=== PATIENT | female | born 1945 | race Caucasian/White ===

== ENCOUNTER 2017-12-03 10:55 | Emergency (ER) | payer MEDICARE ==
[~2017-12-03] VITALS: Ht 157.5 cm; Wt 56.0 kg
[2017-12-03 10:58] VITALS: BP 140/73; PULSE 84; RESP 16; TEMP 98.3; O2SAT 97
[2017-12-03] MEDS ORDERED: ONDANSETRON HCL 4 MG/2 ML VIAL IV PUSH ONE (11:15)
[2017-12-03] MEDS ORDERED: SODIUM CHLOR 0.9% 1000 ML INJ 1,000 ML IV SCH (11:15)
[2017-12-03] MEDS ORDERED: MORPHINE SULFATE 4 MG/ML INJ IV PUSH ONE (11:15)
--- NOTE | 2017-12-03 11:18 | PD ---
HPI Chief Complaint: Musculoskeletal Complaint Time Seen by Provider: 11:04 Travel History International Travel<30 days: No Contact w/Intl Traveler<30days: No Traveled to known affect area: No History of Present Illness HPI The patient is a 72-year-old female who presents to the emergency department for left shoulder pain and probable dislocation. The patient has a history of bilateral shoulder surgeries with shoulder replacement. The patient' s surgeon was Dr. Abhilash Mcmahon in [place], [place], telephone #[phone]. The patient states she was in bed earlier today when she stressed her shoulder and felt the shoulder dislocate. Patient has moderate pain at the left shoulder that is nonradiating, worse with movement, slightly alleviated at rest. She is right-hand dominant. She denies any numbness or tingling of the left upper extremity. Symptoms are moderate. The patient is currently visiting from [place], has no local physician or orthopedist. PFSH Past Medical History Narrative Medical Arthritis, neuropathy, hypertension, tremors Past Surgical History Narrative Surgical Bilateral shoulder surgery, back surgery Social History Tobacco Use: No Allergies-Medications (Allergen,Severity, Reaction): Coded Allergies: No Known Allergies (Verified Allergy, Unknown, 12/03/17) Reported Meds & Prescriptions Reported Meds & Active Scripts Active Percocet (Oxycodone-Acetaminophen) 5-325 mg Tab 1 Tab PO Q6H PRN Review of Systems Except as stated in HPI: all other systems reviewed are Neg HENT: No: Neck Pain Cardiovascular: No: Chest Pain or Discomfort Respiratory: No: Shortness of Breath Gastrointestinal: No: Nausea, Vomiting Musculoskeletal: Positive: Limited ROM, Pain Neurologic: Positive: Other (Chronic neuropathy of the lower extremities), No: Paresthesia (Denies any acute paresthesia of the left upper extremity) Physical Exam Narrative GENERAL: Awake, alert, pleasant 72-year-old female appears her stated age and is in no acute respiratory distress. SKIN: Focused skin assessment warm/dry. HEAD: Atraumatic. Normocephalic. EYES: No injection or drainage. ENT: No nasal bleeding or discharge. Mucous membranes pink and moist. NECK: Trachea midline. No JVD. CARDIOVASCULAR: Regular rate and rhythm. No murmur appreciated. RESPIRATORY: No accessory muscle use. Clear to auscultation. Breath sounds equal bilaterally. MUSCULOSKELETAL: The left upper extremity reveals a deformity at the left shoulder, appears to be a anterior dislocation. Possible left radial pulse. Patient is able to flex and extend the left wrist and is able to flex and extend left elbow, however, is limited range of motion of the shoulder. NEUROLOGICAL: Awake and alert. No obvious cranial nerve deficits. Motor grossly within normal limits. Normal speech. Alert and oriented 4. Follows commands without difficulty. PSYCHIATRIC: Appropriate mood and affect; insight and judgment normal. Data Data Last Documented VS Vital Signs Date Time Temp Pulse Resp B/P (MAP) Pulse Ox O2 Delivery O2 Flow Rate FiO2 12/03/17 10:58 98.3 84 16 140/73 (95) 97 Orders Orders Shoulder, Limited(2vws) (12/03/17 ) Morphine Inj (Morphine Inj) (12/03/17 11:15) Ondansetron Inj (Zofran Inj) (12/03/17 11:15) NPO (12/03/17 11:13) Sodium Chlor 0.9% 1000 Ml Inj (Ns 1000 M (12/03/17 11:15) Hydromorphone Pf Inj (Dilaudid Pf Inj) (12/03/17 12:15) Propofol 200 Mg/20 Ml Inj (Diprivan 200 (12/03/17 12:45) Shoulder, Limited(2vws) (12/03/17 13:02) Sling And Swathe (12/03/17 ) Radiology Film Requests (12/03/17 ) Ed Discharge Order (12/03/17 13:45) Sling And Swathe (12/03/17 ) [facility] Medical Decision Making Medical Screen Exam Complete: Yes Emergency Medical Condition: Yes Medical Record Reviewed: Yes Interpretation(s) Last Impressions Shoulder X-Ray 12/03/17 0000 Signed Impressions: Service Date/Time: Sunday, December 03, 2017 11:24 - CONCLUSION: Bubble this location, correlation suggested. Herbie Monae MD FACR Postreduction x-ray reveals anatomic alignment with arthroplasty in place without fracture. Differential Diagnosis Differential diagnosis includes dislocation, subluxation, hardware failure, fracture, contusion, hematoma, sprain, strain. Narrative Course IV was established. The patient was administered morphine 4 mg and Zofran 4 mg intravenously and placed on maintenance IV fluids. X-ray of the left shoulder was obtained. X-ray reveals left shoulder dislocation. I had a discussion regarding conscious sedation, discussed the risk and benefits with the patient, she was agreeable to reduction. I did discuss the patient with the on-call orthopedic for her surgeon, Dr. Dempsey, who states that the shoulder can be reduced in a normal fashion. The patient was placed on end-tidal CO2, oxygen via nasal cannula, pulse oximetry monitoring, and continuous pulse oximetry monitoring. The patient was placed under conscious sedation with propofol, the left shoulder was reduced, the patient was placed in a sling. Postreduction x- ray revealed proper reduction. The patient was neurovascularly intact after the procedure. She then awakened, her symptoms had significantly improved. She was discharged home with a disc of her x-ray findings is advised to follow- up with orthopedist. Return if symptoms worsen or progress. Procedures Procedure Narrative After the risks and benefits were discussed the following procedure was performed: MODERATE SEDATION: The patient was placed on a digital producer and pulse oximetry. An ambu bag and suction was immediately available at bedside. The patient was monitored by the nurse. Oxygen saturation, heart rate and blood pressure were monitored. Procedural sedation was acheived using propofol 80 mg. The patient was observed until awake and alert. Procedural Sedation time in attendance was 35 minutes. The patient's left reverse total shoulder arthroplasty was reduced under conscious sedation with propofol. The patient's left shoulder was extended at the elbow, abducted at the shoulder, and externally rotated. There appear to be reduction of the left shoulder. The patient was placed in a sling. Post reduction x-ray was obtained. The patient tolerated the procedure without difficulty. There is no obvious was no obvious complications. Diagnosis Primary Impression: Dislocation of left shoulder joint Qualified Codes: S43.005A - Unspecified dislocation of left shoulder joint, initial encounter Patient Instructions: General Instructions Additional Instructions: Please provide the patient a copy/disc of her x-rays. Follow-up with your orthopedist. Sling as directed. Pain medications as directed. Med/Other Pt SpecificInfo: Prescription(s) given Scripts Oxycodone-Acetaminophen (Percocet) 5-325 mg Tab 1 TAB PO Q6H Y for PAIN, #12 TAB 0 Refills Prov: Abhilash Kumar MD 12/03/17 Disposition: 01 DISCHARGE HOME Condition: Stable Abhilash Kumar MD Dec 03, 2017 11:18
--- NOTE | 2017-12-03 11:39 | RADRPT ---
EXAM DATE/TIME: 12/03/2017 11:24 [facility] COMPARISON: No previous studies available for comparison. INDICATIONS : Left shoulder pain after rolling over in bed MEDICAL HISTORY : None. SURGICAL HISTORY : Left shoulder surgery x 7 ENCOUNTER: Initial ACUITY: 1 day PAIN SCORE: 7/10 LOCATION: Left shoulder FINDINGS: Shoulder arthroplasty that appears dislocated anteriorly. No fracture. Lung apex clear CONCLUSION: Bubble this location, correlation suggested. Herbie Monae MD FACR on December 03, 2017 at 11:36 Board Certified Radiologist. This report was verified electronically.
[2017-12-03] MEDS ORDERED: HYDROmorphone HCL PF 1 MG/ML VIAL IV PUSH ONE (12:15)
[2017-12-03] MEDS ORDERED: PROPOFOL 200 MG/20 ML AMP IV ONE (12:45)
--- NOTE | 2017-12-03 13:42 | RADRPT ---
EXAM DATE/TIME: 12/03/2017 13:04 [facility] COMPARISON: SHOULDER LEFT LTD (2VWS), December 03, 2017, 11:24. INDICATIONS : Post reduction left shoulder MEDICAL HISTORY : None. SURGICAL HISTORY : Left shoulder surgery x 7 ENCOUNTER: Subsequent ACUITY: 1 day PAIN SCORE: Non-responsive. LOCATION: Left shoulder FINDINGS: Anatomic alignment with arthroplasty in place without fracture. CONCLUSION: Anatomic alignment... Herbie Monae MD FACR on December 03, 2017 at 13:39 Board Certified Radiologist. This report was verified electronically.
[2017-12-03] MEDS ORDERED: PERC5TAB12 PO (13:44)
== END 2017-12-03 14:26 | disposition home or self-care (01) ==
LOC: PHED 10:55
DX: S43.005A Unspecified dislocation of left shoulder joint, initial encounter (principal); I10 Essential (primary) hypertension; Z96.612 Presence of left artificial shoulder joint; Z87.39 Personal history of other diseases of the musculoskeletal system and connective tissue; Z86.69 Personal history of other diseases of the nervous system and sense organs; X58.XXXA Exposure to other specified factors, initial encounter
CPT/HCPCS: 23650; 73030; 94770; 96361; 96374; 96375; 99152; 99153; 99285; J2270; J2405; J7030